=== PATIENT | female | born 1995 | race Caucasian/White ===

== ENCOUNTER 2020-10-24 10:42 | Emergency (ER) | payer OTHER, SELFPAY ==
[2020-10-24 10:55] VITALS: BP 106/65; PULSE 77; RESP 16; TEMP 36.2; O2SAT 99
--- NOTE | 2020-10-24 12:05 | ED.SKABFB ---
HPI - Skin/Abscess/Foreign Bdy General Chief complaint: Skin/Abscess/Foreign Body Stated complaint: Rash Time Seen by Provider: 10/24/20 12:05 Source: patient Mode of arrival: ambulatory Limitations: no limitations History of Present Illness HPI narrative: Shirlene Jennings is a 25 yo female with no PMH with multiple areas of large rash indurated looking areas on the upper and lower back her left hip and her lower abdomen that started a week ago. She has tried all kinds of [id number]-kju-npacrno treatments including hydrocortisone and a stick, calamine lotion, Benadryl gel, and the ones that are underneath her clothes are getting irritated from being rubbed on clothing and becoming painful Related Data Allergies Allergy/AdvReac Type Severity Reaction Status Date / Time No Known Allergies Allergy Verified 10/24/20 11:04 Review of Systems Review of Systems: CONSTITUTIONAL: Denies fever, chills, sweats. EYES: Denies visual changes, redness, discharge. ENT: Denies rhinorrhea, congestion, sore throat, otalgia. CARDIOVASCULAR: Denies chest pain, palpitations, edema. RESPIRATORY: Denies dyspnea, wheezing, cough GASTROINTESTINAL: Denies abdominal pain, nausea, vomiting, diarrhea. GENITOURINARY: Denies dysuria, hematuria, abnormal discharge SKIN: Large areas of red indurated welts on back lower left hip and lower abdomen NEUROLOGIC: Denies numbness, or focal weakness. PSYCHIATRIC: Denies anxiety or depression. [facility] Past Medical History Medical History No acute medical problems Family History Family History Other Heart disease Social History Social History (Updated 10/24/20 @ 12:14 by Nila Kauffman CNP) Smoking status: Never smoker Alcohol intake: current Comments At time of signature, I agree with nursing past medical, surgical, social and family history. There is no relevant family history pertinent to the presenting complaint. Exam Narrative: GENERAL: This is a well-nourished, well-developed patient, in mild distress. HEAD: normocephalic, atraumatic. EYESSclera clear/white. Vision is grossly intact. EARS: External ears normal. Hearing grossly intact. NOSE: External nose normal without nasal discharge, nares without redness, no rhinorrhea. THROAT: Mucous membranes moist, NECK: Neck supple, CARDIOVASCULAR: Regular rate and rhythm without murmurs, gallops, or rubs. RESPIRATORY: Clear to auscultation. Breath sounds equal bilaterally. No wheezes, rales, or rhonchi. GASTROINTESTINAL: Abdomen soft,, SKIN: warm, intact with large welts that look like hives on her bra line her mid back her lower back her left hip and lower abdomen some of the welted areas measuring as much as 4 x 8 NEURO: awake, alert, and oriented to person, place and time. There were no obvious focal neurologic abnormalities. Steady gait EXTREMITIES: Normal range of motion. BACK: Nontender without deformity Course Course Emergency Course: Patient comes here with itchy rash like hives from unknown exposure, area on left hip is being coming raw and painful from being rubbed by clothing. Has used multiple [id number] treatments without improvement Given dose of prednisone here sent home and sent home with Medrol Dosepak, prednisone, famotidine. On Keflex for lower back irritation and scalding appearance Vital Signs Vital signs: Vital Signs Temperature 97.2 F L 10/24/20 10:55 Pulse Rate 77 10/24/20 10:55 Respiratory Rate 16 10/24/20 10:55 Blood Pressure 106/65 10/24/20 10:55 Pulse Oximetry 99 10/24/20 10:55 Temperature 97.2 F L 10/24/20 10:55 Pulse Rate 77 10/24/20 10:55 Respiratory Rate 16 10/24/20 10:55 Blood Pressure 106/65 10/24/20 10:55 Pulse Oximetry 99 10/24/20 10:55 MDM - Skin/Abscess/Foreign Bdy Differential Diagnosis Differential diagnosis: Likely abscess of skin or subcutaneous tissu
[2020-10-24] MEDS: predniSONE 10 MG TABLET 60 MG PO (12:23)
== END 2020-10-24 12:25 | disposition home or self-care (01) ==
PROVIDERS: Emergency Provider Nurse Practitioner
DX: L50.9 Urticaria, unspecified (principal)
CPT/HCPCS: 99203; G0463; J7512